=== PATIENT | female | born 1985 | race Caucasian/White ===

== ENCOUNTER → 2021-02-11 | Outpatient (CLI) | payer BC ==
--- NOTE | 2021-02-11 10:08 | MM ---
Reason for exam: screening (asymptomatic). Baseline mammogram. History: Family history of breast cancer in paternal cousin. Taking hormonal contraceptives beginning at age 14. Physical Findings: Nurse did not find any significant physical abnormalities on exam. MG 3D Screening Mammo W/Cad Bilateral CC and MLO view(s) were taken. There are scattered fibroglandular densities. Benign calcifications. There is no discrete abnormality. These results were verbally communicated with the patient and result sheet given to the patient on 02/11/21. ASSESSMENT: Benign, BI-RAD 2 RECOMMENDATION: Routine screening mammogram of both breasts at age 39.
== END | disposition home or self-care (01) ==
LOC: RADMAMWWP 08:21
PROVIDERS: ATTEND Obstetrics & Gynecology
DX: Z12.31 Encounter for screening mammogram for malignant neoplasm of breast (principal); Z80.3 Family history of malignant neoplasm of breast
CPT/HCPCS: 77063; 77067

== ENCOUNTER → 2025-05-08 | Outpatient (CLI) | payer BC ==
[2025-05-08 10:47] LABS: HCT 40.8 % (37.2-46.3); HGB 13.5 g/dL (12.0-15.0); MCH 31.8 pg (27.0-32.0); MCHC 33.1 g/dL (32.0-37.0); MCV 96.2 FL (80.0-97.0); NRBC Per 100 WBC 0 X 10*3/uL (0.00-0.01); Platelet Count 232 X 10*3/uL (140-440); RBC 4.24 X 10*6/uL (4.10-5.20); RDW 12.3 % (11.5-14.5); WBC 5.74 X 10*3/uL (4.50-10.00)
[2025-05-08 11:11] LABS: ALT 14 U/L (8-44); AST 14 U/L (13-35); Albumin 4.4 g/dL (3.8-4.9); Albumin/Globulin Ratio 1.83 Ratio (1.60-3.17); Alkaline Phosphatase 48 U/L (41-126); Anion Gap 9.70 mmol/L (4.00-12.00); BUN/Creat Ratio 11.70 Ratio (12.00-20.00); Blood Urea Nitrogen 11.7 mg/dL (9.0-27.0); Calcium 9.2 mg/dL (8.7-10.3); Carbon Dioxide 25.3 mmol/L (21.6-31.8); Chloride 105 mmol/L (96-109); Cholesterol 217.00 mg/dL (0.00-200.00); Globulin 2.4 g/dL (1.6-3.3); Glucose 93 mg/dL (70-110); HDL Cholesterol 78.60 mg/dL (40.00-60.00); LDL Cholesterol,Calculated 127.1 mg/dL (0.0-131.0); Potassium 4.3 mmol/L (3.5-5.5); Sodium 140 mmol/L (135-145); T4, Free (Free Thyroxine) 1.53 ng/dL (0.80-1.80); Total Protein 6.8 g/dL (6.2-8.2); Triglycerides 56.70 mg/dL (0.00-149.00); VLDL Calculation 11.34 mg/dL (5.00-40.00)
== END | disposition home or self-care (01) ==
LOC: LABWHC1 07:23
PROVIDERS: ATTEND Family Medicine
DX: Z00.00 Encounter for general adult medical examination without abnormal findings (principal)
CPT/HCPCS: 36415; 80053; 80061; 84439; 84443; 85027